=== PATIENT | female | born 1980 | race Caucasian/White ===

== ENCOUNTER 2020-05-21 16:08 | Outpatient (RCR) | payer BC, SELFPAY ==
[2020-05-21] MEDS: RHO(D) IMMUNE GLOBULIN 300 MCG SYRINGE IM (16:29)
== END 2020-08-19 23:59 | disposition home or self-care (01) ==
LOC: ANHLAB 16:08
PROVIDERS: PCP Internal Medicine; Visit Provider Obstetrics & Gynecology
DX: Z29.13 Encounter for prophylactic Rho(D) immune globulin (principal); O36.0990 Maternal care for other rhesus isoimmunization, unspecified trimester, not applicable or unspecified; Z3A.00 Weeks of gestation of pregnancy not specified
CPT/HCPCS: 36415; 85461; 90384; 96372; J2790

== ENCOUNTER 2020-08-08 16:08 | Inpatient (IN) | payer BC, SELFPAY ==
[2020-08-08] VITALS (12 sets, daily range): BP systolic 97–135; BP diastolic 61–94; PULSE 90–111; RESP 15; TEMP 36.6–37.1; BMI 26.6
--- NOTE | 2020-08-08 16:08 | LDADM ---
This patient, Caroline Chris, was admitted to Labor/Delivery/Recovery 108 on 08/08/20 at 16:08. Plans for labor, pain management and were discussed with patient. Patient/family oriented to hospital policies and general routines including ID bracelet, bed and alarms, visiting hours, pain management, procedures, bathroom and other care routines, personal items, smoking policy, room service/diet and guest tray routines, infant security routines, and visiting hours. Patient/Family are encouraged to report perceived risks to care and to ask questions if they do not understand what they are told or what they should do. See OBIX for further documentation.
[2020-08-08 16:41] LABS: Basophils Absolute Auto 0.1 K/mm3 (0.0-0.1); Basophils Percent Auto 0.5 % (0.2-1.2); Eosinophils Absolute Auto 0.1 K/mm3 (0-0.3); Eosinophils Percent Auto 1.2 % (0-4.4); Hematocrit 37.2 % (37.0-47.0); Hemoglobin 12.8 g/dL (12.0-15.0); Immature Granulocyte Absolute 0.06 K/mm3 (0.00-0.031); Immature Granulocyte Percent A 0.5 % (0-0.5); Lymphocytes Absolute Auto 1.92 K/mm3 (0.9-3.2); Lymphocytes Percent Auto 17.4 % (18.3-44.2); Mean Corpuscular HGB Conc 34.4 g/dl (32-36); Mean Corpuscular Hemoglobin 31.7 pg (26-34); Mean Corpuscular Volume 92.1 fl (80-100); Mean Platelet Volume 12.5 fl (7.4-10.4); Neutrophils Absolute Auto 7.9 K/mm3 (1.3-6.7); Neutrophils Percent Auto 71.4 % (45.5-73.1); Platelet Count Result 182 k/mm3 (150-375); Red Blood Count 4.04 M/mm3 (4.2-5.4); Red Cell Distribution Width 14.5 % (11.5-14.5); White Blood Count 11.1 K/mm3 (4.5-10.0)
[2020-08-08] MEDS: DINOPROSTONE 10 MG VAG INSERT VAGINAL (16:52)
[2020-08-08 17:05] LABS: Alanine Aminotransferase 32 U/L (4-35); Albumin Level 3.4 g/dL (3.5-5.1); Alkaline Phosphatase 157 U/L (38-126); Anion Gap 7 mmol/L (8-16); Aspartate Amino Transferase 40 U/L (14-36); Bilirubin,Total 0.7 mg/dL (0.2-1.3); Blood Urea Nitrogen 8 mg/dL (7-17); Carbon Dioxide 22 mmol/L (22-30); Chloride 108 mmol/L (98-107); Estimated CRCL calculation 100 ml/min; Estimated Glomerular Filt Rate > 60; Glucose 109 mg/dL (65-105); Potassium 3.9 mmol/L (3.4-5.0); Sodium 137 mmol/L (137-145)
[2020-08-08] MEDS: valACYclovir HCL 500 MG TABLET PO (19:02)
[2020-08-09] VITALS (192 sets, daily range): BP systolic 106–188; BP diastolic 69–139; PULSE 64–114; RESP 14–18; TEMP 36.6–37.9; O2SAT 83–100
[2020-08-09] MEDS: LACTATED RINGERS 1,000 ML 125 ML IV CONT ×3 (05:46→12:44)
[2020-08-09] MEDS: OXYTOCIN 30 UNITS/NS 500 ML 30 UNITS/500 ML BAG 6 UNITS IV CONT (05:47)
[2020-08-09] MEDS: fentaNYL CITRATE INJ (*CRX) 100 MCG/2 ML VIAL IV PUSH (06:48)
[2020-08-09 06:52] LABS: Rapid Plasma Reagin Non-Reactive (NonReactive)
--- NOTE | 2020-08-09 07:40 | WPDOBADMIT ---
Obstetrics - Admit Note Admission Note: record reviewed. Additions to the history and/or subsequent changes in the physical findings follow. 39 y/o at 39 3/7 weeks here for induction. BP have been a little elevated in the office, but no symptoms and no proteinuria. Cervidil last night, has been withdrawn. SROM at 0630 today. Getting more comfortable with epidural. BP in 150/90 range. Otherwise, AVSS NST reactive TOCO: contractions every 2-4 min ABD soft, nontender, gravid, vertex EXT nontender Cervix 4/50/-2. AROM forebag, clear fluid. Vertex. A: IUP a term with gestational hypertension. P: Oxytocin. Anticipate . Labetalol IV x 1 dose for HTN.
[2020-08-09] MEDS: LABETALOL HCL INJ 100 MG/20 ML VIAL 20 MG IV PUSH ×2 (07:41→13:52)
--- NOTE | 2020-08-09 07:42 | WPDANESEPPF ---
Anes - Initial Pre Proc Eval Procedure: labor epidural Date/Time: 08/09/20 07:42 Surgeon: Rachid Tovar MD Pre Op Diagnosis: labor pain Pre Op Diagnosis: Induction of Labor Patient Data Age: 39 Gender: F Height: 1.68 m Weight: 75 kg Last Vital Signs Temp 36.7 C 08/09/20 03:56 Pulse 78 08/09/20 07:38 Resp 14 08/09/20 03:56 BP 146/99 H 08/09/20 07:38 Pulse Ox 98 08/09/20 07:40 Allergies Allergy/AdvReac Type Severity Reaction Status Date / Time nitrofurantoin Allergy Unknown Chest Pain Verified 08/08/20 16:29 Penicillins Allergy Unknown Rash Verified 08/08/20 16:29 Home Medications Medication Instructions Recorded Confirmed Type PNV [id number] oil 1 tablet PO DAILY 07/16/20 08/08/20 History [ with DHA-Folic Acid] cholecalciferol (vitamin D3) 50 mcg PO DAILY 07/16/20 08/08/20 History [Vitamin D3] valacyclovir 500 mg PO DAILY 08/08/20 08/08/20 History Laboratory Tests 08/08/20 08/08/20 08/08/20 16:33 16:33 16:33 WBC 11.1 K/mm3 H K/mm3 (4.5-10.0) RBC 4.04 M/mm3 L M/mm3 (4.2-5.4) Hgb 12.8 g/dL g/dL (12.0-15.0) Hct 37.2 % % (37.0-47.0) MCV 92.1 fl fl (80-100) MCH 31.7 pg pg (26-34) MCHC 34.4 g/dl g/dl (32-36) RDW 14.5 % % (11.5-14.5) Plt Count 182 k/mm3 k/mm3 (150-375) MPV 12.5 fl H fl (7.4-10.4) Immature Gran % (Auto) 0.5 % % (0-0.5) Neut % (Auto) 71.4 % % (45.5-73.1) Lymph % (Auto) 17.4 % L % (18.3-44.2) [place] % (Auto) 9.0 % H % (2.6-8.5) Eos % (Auto) 1.2 % % (0-4.4) Baso % (Auto) 0.5 % % (0.2-1.2) Lymph # (Auto) 1.92 K/mm3 K/mm3 (0.9-3.2) [place] # (Auto) 1.0 K/mm3 H K/mm3 (0.1-0.6) Eos # (Auto) 0.1 K/mm3 K/mm3 (0-0.3) Baso # (Auto) 0.1 K/mm3 K/mm3 (0.0-0.1) Abs Immat Gran (auto) 0.06 K/mm3 H K/mm3 (0.00-0.031) Absolute Neuts (auto) 7.9 K/mm3 H K/mm3 (1.3-6.7) Absolute Nucleated RBC 0.0 K/mm3 K/mm3 (0.0-0.012) Nucleated RBC % 0.0 % % (0.0-0.2) Sodium 137 mmol/L mmol/L (137-145) Potassium 3.9 mmol/L mmol/L (3.4-5.0) Chloride 108 mmol/L H mmol/L (98-107) Carbon Dioxide 22 mmol/L mmol/L (22-30) Anion Gap 7 mmol/L L mmol/L (8-16) BUN 8 mg/dL mg/dL (7-17) Creatinine 0.60 mg/dL L mg/dL (0.7-1.0) Estim Creat Clear Calc 100 ml/min ml/min Estimated GFR > 60 (59 - ) Glucose 109 mg/dL H mg/dL (65-105) Uric Acid 4.0 mg/dL mg/dL (2.5-7.5) Calcium 9.0 mg/dL mg/dL (8.4-10.2) Total Bilirubin 0.7 mg/dL mg/dL (0.2-1.3) AST 40 U/L H U/L (14-36) ALT 32 U/L U/L (4-35) Alkaline Phosphatase 157 U/L H U/L (38-126) Total Protein 7.0 g/dL g/dL (6.3-8.2) Albumin 3.4 g/dL L g/dL (3.5-5.1) RPR Non-reactive (NonReactive) Blood Type Antibody Screen 08/08/20 08/08/20 16:33 16:33 WBC RBC Hgb Hct MCV MCH MCHC RDW Plt Count MPV Immature Gran % (Auto) Neut % (Auto) Lymph % (Auto) [place] % (Auto) Eos % (Auto) Baso % (Auto) Lymph # (Auto) [place] # (Auto) Eos # (Auto) Baso # (Auto) Abs Immat Gran (auto) Absolute Neuts (auto) Absolute Nucleated RBC Nucleated RBC % Sodium Cancelled Potassium Cancelled Chloride Cancelled Carbon Dioxide Cancelled Anion Gap Cancelled BUN Cancelled Creatinine Cancelled Estim Creat Clear Calc Cancelled Estimated GFR Cancelled Glucose
--- NOTE | 2020-08-09 12:30 | PM.OBPNLAB ---
Pain Control Date/time seen: 08/09/20 17:41 Comments: Pain much better with epidural. Pelvic Exam Dilation (cm): 5 Effacement (%): 90 station: -1 Comments: IUPC placed Contractions Contraction pattern: Regular Status Comments: NST reactive TOCO: contractions every 2-4 min Assessment and Plan Comments: Continue labor
[2020-08-09] MEDS: ceFAZolin 2 GM/D5W 50 ML 2 GM/50 ML BAG IVPB (12:48)
[2020-08-09] MEDS: SODIUM CHLORIDE 0.9% IV 300 ML 600 ML I-UTERINE (13:00)
[2020-08-09] MEDS: OXYTOCIN 30 UNITS/NS 500 ML 30 UNITS/500 ML BAG 125 UNITS IV CONT (15:42)
[2020-08-09] MEDS: IBUPROFEN 600 MG TABLET PO (16:10)
[2020-08-09] MEDS: BENZOCAINE 20% AER SPR (*SP) 56 GM CAN 1 SPRAY TOPICAL (16:12)
[2020-08-09] MEDS: WITCH HAZEL 40 PADS 1 PAD TOPICAL (16:12)
--- NOTE | 2020-08-09 17:44 | PM.OBPRVD ---
OB - Delivery Note Procedure Delivery date: 08/09/20 Procedure: Induction of labor with Induction method: per pitocin protocol and per cervidil protocol Delivery monitor: external FHT, external uterine and internal uterine Route of delivery: Laceration Description: Perineal - 2nd Degree Delivery repair: vicryl (3-0) Specimen: Yes (cord blood, placenta) Quantitative Blood Loss (ml): 330 Anesthesia type: Epidural Disposition: PACU Complications: None Narrative: 39 y/o at 39 3/7 weeks gestation who presented to the hospital for induction of labor. Cervidil was placed overnight. It was withdrawn the following morning and oxytocin was administered intravenously. SROM occurred with clear fluid. She received an epidural. BP readings were elevated and she received one dose of labetalol IV. BP responded and she did not require any further doses. A forebag was noted on exam and amniotomy was performed of the forebag with return of clear fluid. Her labor progressed and her cervix dilated completely. She pushed with good effort and delivered the 's head to the perineum. A loose nuchal cord was reduced and the body delivered. The nose and mouth were bulb suctioned. After a delay, the cord was clamped and cut. The was handed off the field. Cord blood was collected. The placenta delivered spontaneously and was grossly normal in appearance. The usual 3 vessel cord was noted. A second degree midline perineal laceration was sustained. This was reapproximated using 3 0 Vicryl in the usual layered fashion. Excellent hemostasis resulted as did excellent reapproximation of the normal anatomy. Needle and instrument counts were correct. The patient was taken to recovery room in stable condition. The went to the nursery in stable condition. I was present and scrubbed for the entire delivery. Baby Date of : 08/09/20 Time of : 15:21 Weeks of gestation at delivery: 39 gender: Male Weight (pounds): 6 Weight (ounces): 12 presentation: vertex position: Right Occiput Anterior Placenta delivery description: Spontaneous and Normal Configuration cord vessel description: 3 Vessels, Nuchal Cord and Delayed Cord Clamping score one minute: 8 score five minutes: 9
--- NOTE | 2020-08-09 17:49 | PM.OBDSVD ---
DS: Admitting Diagnosis Admitting Diagnosis Admitting Diagnosis: IUP at 39 3/7 weeks Gestational HTN DS: Discharge Diagnosis Discharge Diagnosis (1) (normal spontaneous vaginal delivery): Code(s): O80 - Encounter for full-term uncomplicated delivery Status: Acute (2) Gestational hypertension: Code(s): O13.9 - Gestational [-induced] hypertension without significant proteinuria, unspecified trimester Status: Acute OB - DS: Summary OB Procedures : None OB Procedures Intrapartum: Spontaneous Vag Delivery OB Procedures: : RHo (D) lg Time Spent with Patient Time attestation: Total time spent providing and/or coordinating discharge services: DS: Data Data Completed and Pending Pending studies at discharge: Pending at discharge 08/09/20 15:25 Surgical [PTH] Routine Labs on day of discharge: Labs from last 24 hours 08/08/20 16:33 RPR Non-reactive Discharge Plan Discharge Attending physician on discharge: Rachid Tovar Discharging Clinician: Rachid Tovar Patient Disposition: Home, Self-Care Activity: pelvic rest Diet: as tolerated Discharge Instructions: Education: Mom and Baby Guide Given to: Mother Follow-Up: Call your delivering provider's office for an appointment to be seen in: 4 Weeks [facility]. Appointment Date/Time: August 13, 2020 at 9:00 am What to expect at your follow-up visit: Blood Pressure Check Physical Assessment Call [phone] if you are unable to keep your appointment time. BREAST CARE: * Wear a snug supportive bra. * For engorgement discomfort: Breast Feeding: * Apply warm moist washcloths * Express milk as needed to relieve engorgement * Wear loose clothing * For sore nipples: * Identify correct latch-on * Apply warm moist washcloths before and after nursing * Air dry nipples after nursing * May apply Lansinoh cream to nipples EPISIOTOMY/PERINEAL CARE: * Until bleeding stops, use your maicol bottle after urinating * Change your pad frequently throughout the day * You may take sitz baths several times a day (fill your bathtub with warm water and soak for 20 minutes.) Do NOT bathe in the water * No tub baths until seen by your physician - You may shower ACTIVITY: * Rest as much as possible. * Do not exercise or lift anything heavier than your baby (such as laundry or other children.) * Avoid stairs or driving as much as possible. * Do not put anything into the vagina. No douching, tampons, or sexual activity until seen by physician. NOTIFY PHYSICIAN IF YOU HAVE ANY QUESTIONS OR IF ANY OF THE FOLLOWING SYMPTOMS OCCUR: * If your episiotomy or incision becomes red, swollen, or more painful than what you have experienced in the hospital. * If your vaginal bleeding becomes foul smelling. * If your vaginal bleeding becomes more heavy than a period or if your bleeding changes from pink to bright red. However, you may pass an occasional walnut-sized clot once or twice for the first week . * If you experience a sharp, shooting pain in you calves. * If you discover a hard, reddened area on your breast or if you experience flu-like symptoms. *Temperature of 100.4. or higher DIET: * Eat regular, well-balanced meals. * Drink plenty of fluids daily. If , drink to thirst.Call or return if temperature above 100.4? F, increased abdominal pain, increased vaginal bleeding or any new problems. Stand Alone Forms: General Discharge Information Follow-up/Referrals: Rachid Tovar MD [Physician] - 6 Weeks Discharge Medications: New ibuprofen 600 mg tablet 600 mg PO Q6H PRN (Reason: cramps) Qty: 30 RF: 0 acetaminophen [Mapap (acetaminophen)] 325 mg Tablet 650 mg PO Q6H PRN (Reason: Mild Pain (1-3)
--- NOTE | 2020-08-09 18:41 | OBPPTRN ---
Addendum entered by Dari Kelley RN 08/09/20 18:41: Admission - 08/09/20 @ 1827. Original Note: Patient transferred to post room #282 via wheelchair. Support person present. Oriented to unit, room, information board, rooming in, admission packet and security measures. Patient verbalizes understanding.
[2020-08-10] VITALS: BP 110/77; PULSE 84; RESP 18; TEMP 36.7; O2SAT 98
[2020-08-10] MEDS: IBUPROFEN 600 MG TABLET PO ×3 (00:47→16:55)
[2020-08-10] MEDS: LANOLIN (LANSINOH) 7.5 GM CREAM 1 APPLIC TOPICAL (00:47)
[2020-08-10 04:00] VITALS: BP 117/80; PULSE 70; RESP 18; TEMP 36.5; O2SAT 98
[2020-08-10 05:04] LABS: Hematocrit 28.7 % (37.0-47.0); Hemoglobin 9.5 g/dL (12.0-15.0)
--- NOTE | 2020-08-10 07:00 | PC.NURSE ---
PT introductions made and plan of care discussed per post , pain management, breast feeding, daily care activities. PT verbalized understanding of such care.
--- NOTE | 2020-08-10 07:32 | PM.OBPNVD ---
OB - PN: Subj Subjective Date/time seen: 08/10/20 07:32 Patient comments: no complaints, pain well controlled and tolerating diet [place] feeding status: exclusively breast feeding Narrative: patient doing well this AM. No complaints. Pain is well controlled. She reports minimal bleeding. She is ambulating and voiding without difficulty. She is tolerating PO. She denies N/V, fever, chills. OB - PN: Obj Data Labs CBC & Chem 7: 08/10/20 04:28 08/08/20 16:33 Labs: Laboratory Results - last 24 hr 08/10/20 08/10/20 04:28 04:28 Hgb 9.5 L D Hct 28.7 L Blood Type B Negative Antibody Screen Negative OB - PN A/P Plan day: 1 Plan: routine care Comments: patient doing well H/H 9.11/09, asymptomatic. will start iron supplementation plan for infant circumcision today, risks, benefits and alternatives discussed. verbal consent obtained continue routine care Time Spent With Patient Time: Total time spent is greater than 50% in coordination of care (as documented) at patient's floor/unit and/or counseling patient: Time with patient: less than 15 minutes Review of Systems Review of Systems: All systems reviewed & are unremarkable except as noted in HPI and below Exam Const: General: comfortable and no acute distress Resp: Effort & Inspection: normal respiratory effort Cardio: Rate: regular rate GI: GI Palp: Yes Soft to palpation and No Tenderness to palpation present (GI) Auscultation: normal bowel sounds Other: fundus firm and below umbilicus. Psych: Affect: normal affect
[2020-08-10 08:15] VITALS: BP 134/93; PULSE 87; RESP 16; TEMP 36.9; O2SAT 99
[2020-08-10 09:45] VITALS: PULSE 87; RESP 16; O2SAT 99
[2020-08-10] MEDS: DOCUSATE SODIUM 100 MG CAPSULE PO ×2 (09:45→16:55)
[2020-08-10] MEDS: POLYSACCHARIDE IRON COMPLEX 150 MG CAPSULE PO ×2 (09:45→16:55)
[2020-08-10] MEDS: MULTIVIT/MIN/PREN/FOL AC/IRON TABLET 1 TAB PO (09:45)
--- NOTE | 2020-08-10 10:30 | PC.NURSE ---
Consulted with patient, reviewed feeding cues, frequencies, duration of feedings, feeding elimination flow sheet, and signs of adequate intake. Demonstrated stimulation techniques to wake for feeding. Assisted with to breast. Reviewed positioning/alignment, holding breast and asymmetrical latch on. was able to latch correctly. Infant nursed eagerly, with steady draws and frequent swallowing noted. Reviewed signs of a correct latch, effective nursing and suck swallow ratio. was able to maintain latch without discomfort to mother. Nipple care reviewed. Instructed mother to call out for RN assistance if she is unable to latch for feeding or she has discomfort with nursing. Instructed feeding should be initiated three hours from start of last feeding or if feeding cues are noted before. Mother voiced understanding of information shared.
--- NOTE | 2020-08-10 10:48 | WPDANLDPN2 ---
Anes-Prog Note L&D Date/Time: 08/10/20 10:48 Comfortable throughout: labor and delivery Neuraxial method: epidural Epidural/Spinal procedure site: clean & non-tender Neuro status: Neuro function grossly intact. Cardiovascular status: normal Respiratory status: normal Airway patency: baseline Mental status: baseline Post-Op hydration status: normal Vital Signs: Last Vital Signs Temp 98.4 F 08/10/20 08:15 Pulse 87 08/10/20 08:15 Resp 16 08/10/20 08:15 BP 134/93 H 08/10/20 08:15 Pulse Ox 99 08/10/20 08:15 Pain score (VAS): no pain verbalized I/O: Intake & Output 08/09/20 08/10/20 08/10/20 23:59 07:59 15:59 Intake Total 500 Output Total 85 Balance 415 Post-procedural complaints: none Patient feedback: Patient satisfied with anesthetic care.
[2020-08-10 12:00] VITALS: BP 130/88; PULSE 95; PULSE 99; RESP 14; RESP 18; TEMP 36.5; O2SAT 98; O2SAT 99
[2020-08-10] MEDS: RHO(D) IMMUNE GLOBULIN 300 MCG SYRINGE IM (14:59)
[2020-08-10 19:23] VITALS: BP 139/86; PULSE 81; RESP 18; TEMP 36.6; O2SAT 96
[2020-08-11 08:00] VITALS: BP 115/75; PULSE 78; RESP 16; TEMP 36.8; O2SAT 94
--- NOTE | 2020-08-11 08:02 | PM.OBDSVD ---
DS: Admitting Diagnosis Admitting Diagnosis Admitting Diagnosis: IUP at term OB - DS: Summary OB Procedures : None OB Procedures Intrapartum: Spontaneous Vag Delivery OB Procedures: : None Status at Discharge Functional status at discharge: independent ambulation Overall status at discharge: patient is back to baseline Time Spent with Patient Time attestation: Total time spent providing and/or coordinating discharge services: Time spent: Less than 30 minutes Exam Const: General: comfortable and no acute distress Resp: Effort & Inspection: normal respiratory effort Auscultation: clear to auscultation bilaterally Cardio: Rate: regular rate GI: GI Palp: Yes Soft to palpation Auscultation: normal bowel sounds Other: Fundus firm below umbilicus Psych: Appearance: grossly normal Mental Status: mental status grossly normal Affect: normal affect DS: Data Data Completed and Pending Pending studies at discharge: Pending at discharge 08/09/20 15:25 Surgical [PTH] Routine Labs on day of discharge: Labs from last 24 hours 08/10/20 04:28 Blood Type B Negative Antibody Screen Negative Screen Negative Baby's Blood Type O pos Baby's EFREN Positive Doses of RhIg Required 1 Discharge Plan Discharge Attending physician on discharge: Rachid Tovar Discharging Clinician: Rachid Tovar Patient Disposition: Home, Self-Care Activity: pelvic rest Diet: as tolerated Discharge Instructions: Call or return if temperature above 100.4? F, increased abdominal pain, increased vaginal bleeding or any new problems. Stand Alone Forms: General Discharge Information Follow-up/Referrals: Rachid Tovar MD [Physician] - 6 Weeks Discharge Medications: New ibuprofen 600 mg tablet 600 mg PO Q6H PRN (Reason: cramps) Qty: 30 RF: 0 polysaccharide iron complex 150 mg iron Capsule 150 mg PO BIDWM Qty: 60 RF: 0 acetaminophen [Mapap (acetaminophen)] 325 mg Tablet 650 mg PO Q6H PRN (Reason: Mild Pain (1-3) Or Headache) Qty: 30 RF: 0 Sld-D-Cjikil Cream 1 applic topical PRN PRN (Reason: Sore Nipples) Qty: 28 RF: 0 Continued cholecalciferol (vitamin D3) [Vitamin D3] 50 mcg (2,000 unit) Capsule 50 mcg PO DAILY RF: 0 with DHA-Folic Acid 400-32.5 mcg-mg Tablet,Chewable 1 tablet PO DAILY RF: 0 valacyclovir 1 gram tablet 500 mg PO DAILY RF: 0 Date of admission: 08/08/20 16:08 Primary Care Provider: Ameya Knott Admitting Provider: Rachid Tovar Attending physician on admission: Rachid Tovar Condition: Stable
[2020-08-11] MEDS: POLYSACCHARIDE IRON COMPLEX 150 MG CAPSULE PO (08:17)
[2020-08-11] MEDS: DOCUSATE SODIUM 100 MG CAPSULE PO (08:18)
[2020-08-11] MEDS: IBUPROFEN 600 MG TABLET PO (08:18)
[2020-08-11] MEDS: MULTIVIT/MIN/PREN/FOL AC/IRON TABLET 1 TAB PO (08:18)
[2020-08-11] MEDS: WITCH HAZEL 40 PADS 1 PAD TOPICAL (08:19)
--- NOTE | 2020-08-11 17:10 | PC.NURSE ---
1300 Patient viewed the discharge video Mother & Baby Care, The First Two Weeks . Patient was given the opportunity and encouraged to ask questions. Patient verbalized understanding of information shared and has been given the mother/baby guide for home reference.
[2020-08-13 09:21] VITALS: BP 126/88; PULSE 112; RESP 20; TEMP 36.7; O2SAT 100
== END 2020-08-11 16:16 | disposition home or self-care (01) | DRG 807 ==
LOC: ANHLDR 08-09 17:50 → ANHOB2 08-11 13:49 → ANHLDR 08-13 14:13 → ANHOB2 08-13 14:13
PROVIDERS: Admitting Provider Obstetrics & Gynecology; PCP Internal Medicine; Visit Provider Student in an Organized Health Care Education/Training Program
DX: O13.4 Gestational [pregnancy-induced] hypertension without significant proteinuria, complicating childbirth (principal); Z37.0 Single live birth; O70.1 Second degree perineal laceration during delivery; O69.81X0 Labor and delivery complicated by cord around neck, without compression, not applicable or unspecified; Z3A.39 39 weeks gestation of pregnancy
CPT/HCPCS: 36415; 80053; 84550; 85014; 85018; 85025; 85461; 86592; 86850; 86900; 86901; 88307; 90384; A9270; J0131; J0690; J2590; J2790; J2795; J3010; J7030; J7120

== ENCOUNTER 2021-11-21 17:05 | Outpatient (CLI) | payer BC, SELFPAY ==
--- NOTE | ~2021-11-21 | MM_ITS ---
EXAMINATION: MM screening misha BI w paula HISTORY: Screening mammogram TECHNIQUE: Craniocaudal and mediolateral oblique 3-D tomosynthesis images were obtained and synthetic 2-D images were generated. CAD analysis was submitted and interpreted. COMPARISON: None, baseline BREAST PARENCHYMAL COMPOSITION: The breasts are extremely dense, which lowers the sensitivity of mamm ography. FINDINGS: There is no suspicious mass, calcification, or architectural distortion to suggest malignan cy in either breast. There has been no suspicious interval change. IMPRESSION: 1. No mammographic evidence of malignancy. 2. Recommend routine screening mammography in one year. BI-RADS Category 1: Negative Reviewed, dictated and finalized at location A.
== END 2021-11-21 17:06 | disposition home or self-care (01) ==
PROVIDERS: PCP Internal Medicine; Visit Provider Nurse Practitioner
DX: Z12.31 Encounter for screening mammogram for malignant neoplasm of breast (principal)
CPT/HCPCS: 77063; 77067

== ENCOUNTER → 2022-03-10 15:45 | Outpatient (CLI) | payer BC, SELFPAY ==
--- NOTE | ~2022-03-10 | US_ITS ---
EXAMINATION: US thyroid DATE: 03/10/2022 15:58 INDICATION: Goiter TECHNIQUE: Multiple ultrasound images of the thyroid were obtained. COMPARISON: None. FINDINGS: The right thyroid lobe measures 5.1 x 1.4 x 1.5 cm. The left thyroid lobe measures 1.9 x 0.8 x 1.5 c m. Thyroid isthmus measures 4 mm in thickness. No discrete nodules identified. There is normal echote xture, echogenicity and vascular flow throughout the thyroid gland. IMPRESSION: 1. Normal thyroid ultrasound. Reviewed, dictated and finalized at location A.
== END ==
PROVIDERS: PCP Internal Medicine; Visit Provider Internal Medicine
DX: Z86.39 Personal history of other endocrine, nutritional and metabolic disease (principal)
CPT/HCPCS: 76536

== ENCOUNTER 2022-08-13 18:45 | Emergency (ER) | payer BC, SELFPAY ==
[2022-08-13 18:54] VITALS: BP 138/93; PULSE 115; RESP 16; TEMP 37.1; O2SAT 100
--- NOTE | 2022-08-13 18:57 | ED.URI ---
HPI - URI/Sore Throat General Chief Complaint: Upper Respiratory Infection Stated Complaint: HEADACHE/JAW PAIN/SINUS PAIN/COUGH Time Seen by Provider: 08/13/22 18:57 Source: patient and RN notes reviewed Mode of arrival: ambulatory Limitations: no limitations History of Present Illness HPI Narrative: 41-year-old female presents with concern for 1/2 week history of headache, jaw pain, sinus pain, copious sinus drainage, cough. Reports cough is productive. She reports her 2-year-old was diagnosed with strep last week. She reports she has been taking Sudafed intermittently. MD elicited complaint: cough, nasal congestion and sinus pain Related Data Allergies Allergy/AdvReac Type Severity Reaction Status Date / Time nitrofurantoin Allergy Unknown Chest Pain Verified 08/13/22 18:47 Penicillins Allergy Unknown Rash Verified 08/13/22 18:47 Review of Systems Review of Systems: CONSTITUTIONAL: Reports malaise, chills, sweats EYES: Denies visual changes, redness, or discharge. ENT: Reports rhinorrhea, congestion, sinus pain, and sore throat. CARDIOVASCULAR: Denies chest pain, palpitations, or edema. RESPIRATORY: Reports cough. Denies dyspnea. GASTROINTESTINAL: Denies abdominal pain, nausea, vomiting, diarrhea SKIN: Denies rash or itching. MUSCULOSKELETAL: Denies myalgia. NEUROLOGIC: Denies headache. All systems reviewed & are unremarkable except as noted in HPI and below PMFSH Past Medical History Medical History Benign neoplasm of parotid gland Recurrent UTI Vitamin D deficiency Family History Family History Grandparent Diabetes mellitus Family history of malignant neoplasm of breast in first degree relative Family history of dementia Mother Patient's mother is in good health Father Stented coronary artery Hypertension Social History Social History Smoking status: Former smoker Tobacco type: cigarettes Smoking end date: 12/17/19 Alcohol intake: current Substance use: never Spiritual care concerns: No Comments At time of signature, agree with nursing past medical, surgical, social and family history. There is no relevant family history pertinent to the presenting complaint Exam Narrative: GENERAL: Well-appearing, well-nourished, and in no acute distress. HEAD: Normocephalic EYES: PERRLA, conjunctivae clear ENT: Nares clear, turbinates edematous and erythematous, sinus tenderness. Mucous membranes moist. TM pearly dunne with dull light reflex bilaterally; no tragal tenderness. Oropharynx not erythematous without lesions. Tonsils not enlarged and without exudate, no drooling, no hoarseness, no trismus, uvula midline. NECK: Supple. No lymphadenopathy CHEST: Clear to auscultation, breath sounds equal. No wheezing, rhonchi, rales, or stridor. No respiratory distress, speaks in full sentences. HEART: Regular rate and rhythm. No murmur heard. SKIN: Warm, dry, no rash. NEURO: Alert and oriented x3. PSYCH: Normal mood and affect Course Course Emergency Course: Patient is aware of diagnosis, understands and agrees to treatment plan. Anticipatory guidance given. Patient agrees to follow-up as directed and is aware of reasons to seek care at the emergency department. Portions of this record may have been created with voice recognition software Level of Care: Express Care Visit Vital Signs Vital signs: Vital Signs Temperature 98.7 F 08/13/22 18:54 Pulse Rate 115 H 08/13/22 18:54 Respiratory Rate 16 08/13/22 18:54 Blood Pressure 138/93 H 08/13/22 18:54 Pulse Oximetry 100 08/13/22 18:54 Temperature 98.7 F 08/13/22 18:54 Pulse Rate 115 H 08/13/22 18:54 Respiratory Rate 16 08/13/22 18:54 Blood Pressure 138/93 H 08/13/22 18:54 Pulse Oximetry 100 08/13/22 18:54 Reviewed. AMY - URI/Felicity
== END 2022-08-13 19:06 | disposition home or self-care (01) ==
PROVIDERS: Emergency Provider Nurse Practitioner; PCP Internal Medicine
DX: J01.90 Acute sinusitis, unspecified (principal); B96.89 Other specified bacterial agents as the cause of diseases classified elsewhere; Z87.891 Personal history of nicotine dependence
CPT/HCPCS: 99213; G0463

== ENCOUNTER 2023-02-23 17:11 | Outpatient (RCR) | payer BC, SELFPAY ==
[2023-02-24] MEDS: RHO(D) IMMUNE GLOBULIN 300 MCG/2 ML SYRINGE IM (17:47)
== END 2023-05-24 23:59 | disposition home or self-care (01) ==
LOC: ANHLAB 17:11
PROVIDERS: PCP Internal Medicine; Visit Provider Obstetrics & Gynecology
DX: Z29.13 Encounter for prophylactic Rho(D) immune globulin (principal); O36.0190 Maternal care for anti-D [Rh] antibodies, unspecified trimester, not applicable or unspecified; Z3A.00 Weeks of gestation of pregnancy not specified
CPT/HCPCS: 36415; 85461; 86850; 86900; 86901; 90384; 96372; J2790

== ENCOUNTER 2023-04-28 12:34 | Inpatient (IN) | payer BC, SELFPAY ==
[2023-04-28] VITALS (91 sets, daily range): BP systolic 96–214; BP diastolic 42–180; PULSE 75–136; RESP 16; TEMP 36.3–37.7; O2SAT 92–100; BMI 27.7
--- NOTE | 2023-04-28 12:34 | LDADM ---
This patient, Caroline Chris, was admitted to Labor/Delivery/Recovery 108 on 04/28/23 at 12:34. Plans for labor, pain management and were discussed with patient. Patient/family oriented to hospital policies and general routines including ID bracelet, bed and alarms, visiting hours, pain management, procedures, bathroom and other care routines, personal items, smoking policy, room service/diet and guest tray routines, infant security routines, and visiting hours. Patient/Family are encouraged to report perceived risks to care and to ask questions if they do not understand what they are told or what they should do. See OBIX for further documentation.
[2023-04-28 13:23] LABS: Basophils Percent Auto 0.5 % (0.2-1.2); Eosinophils Absolute Auto 0.1 K/mm3 (0-0.3); Eosinophils Percent Auto 1.4 % (0-4.4); Hematocrit 40.7 % (37.0-47.0); Hemoglobin 13.6 g/dL (12.0-15.0); Immature Granulocyte Absolute 0.03 K/mm3 (0.00-0.031); Immature Granulocyte Percent A 0.3 % (0-0.5); Lymphocytes Absolute Auto 1.66 K/mm3 (0.9-3.2); Mean Corpuscular HGB Conc 33.4 g/dl (32-36); Mean Corpuscular Hemoglobin 31.6 pg (26-34); Mean Corpuscular Volume 94.4 fl (80-100); Mean Platelet Volume 11.9 fl (7.4-10.4); Monocytes Absolute Auto 0.8 K/mm3 (0.1-0.6); Monocytes Percent Auto 8.7 % (2.6-8.5); Neutrophils Absolute Auto 6.1 K/mm3 (1.3-6.7); Neutrophils Percent Auto 70.1 % (45.5-73.1); Platelet Count Result 201 k/mm3 (150-375); Red Blood Count 4.31 M/mm3 (4.2-5.4); Red Cell Distribution Width 12.8 % (11.5-14.5); White Blood Count 8.7 K/mm3 (4.5-10.0)
[2023-04-28] MEDS: LACTATED RINGERS 1,000 ML 125 ML IV CONT (13:26)
[2023-04-28] MEDS: ceFAZolin 2 GM/D5W 50 ML 2 GM/50 ML BAG IVPB (13:27)
--- NOTE | 2023-04-28 15:12 | WPDANESEPP ---
Anes - Eval Pre Procedure Procedure: Labor epidural Date/Time: 04/28/23 15:12 Surgeon: La Preop Diagnosis: Pain during labor Pre Op Diagnosis: Labor Patient Data Age: 42 Gender: F Height: 1.68 m Weight: 78 kg Last Vital Signs Pulse 75 04/28/23 15:01 BP 165/91 H 04/28/23 15:01 Allergies Allergy/AdvReac Type Severity Reaction Status Date / Time nitrofurantoin Allergy Unknown Chest Pain Verified 04/18/23 12:05 Penicillins Allergy Unknown Rash Verified 04/18/23 12:05 Home Medications Medication Instructions Recorded Confirmed Type vits no.126-ferrous fum 1 tablet PO DAILY 04/18/23 04/18/23 History 28 mg iron-folic acid 800 mcg tablet (Classic ) valacyclovir 500 mg tablet 500 mg PO DAILY 04/18/23 04/18/23 History Laboratory Tests 04/28/23 13:11 WBC 8.7 K/mm3 (4.5-10.0) RBC 4.31 M/mm3 (4.2-5.4) Hgb 13.6 D g/dL (12.0-15.0) Hct 40.7 % (37.0-47.0) MCV 94.4 fl (80-100) MCH 31.6 pg (26-34) MCHC 33.4 g/dl (32-36) RDW 12.8 % (11.5-14.5) Plt Count 201 k/mm3 (150-375) MPV 11.9 H fl (7.4-10.4) Immature Gran % (Auto) 0.3 % (0-0.5) Neut % (Auto) 70.1 % (45.5-73.1) Lymph % (Auto) 19.0 % (18.3-44.2) [place] % (Auto) 8.7 H % (2.6-8.5) Eos % (Auto) 1.4 % (0-4.4) Baso % (Auto) 0.5 % (0.2-1.2) Lymph # (Auto) 1.66 K/mm3 (0.9-3.2) [place] # (Auto) 0.8 H K/mm3 (0.1-0.6) Eos # (Auto) 0.1 K/mm3 (0-0.3) Baso # (Auto) 0.0 K/mm3 (0.0-0.1) Abs Immat Gran (auto) 0.03 K/mm3 (0.00-0.031) Absolute Neuts (auto) 6.1 K/mm3 (1.3-6.7) Absolute Nucleated RBC 0.0 K/mm3 (0.0-0.012) Nucleated RBC % 0.0 % (0.0-0.2) RPR Pending Blood Type B Negative Antibody Screen Positive Antibody Identification Pending Antigen Identification Pending EFREN, IgG Interpret Pending EFREN, Poly Interpret Negative EFREN, Complement Interp Pending Patient hx anesthesia problems: none Family hx anesthesia problems: none Results Review: All pre-operative results and documents have been reviewed as part of the pre-operative evaluation. [facility] Past Medical History Medical History Benign neoplasm of parotid gland Recurrent UTI Vitamin D deficiency Family History Family History Grandparent Diabetes mellitus Family history of malignant neoplasm of breast in first degree relative Family history of dementia Mother Patient's mother is in good health Father Stented coronary artery Hypertension Social History Social History Smoking status: Former smoker Tobacco type: cigarettes Smoking end date: 12/17/19 Alcohol intake: current Substance use: never Spiritual care concerns: No Exam Day of Procedure 04/28/23 15:12 Neurological: alert and oriented
[2023-04-28 16:33] LABS: Rapid Plasma Reagin Non-Reactive (NonReactive)
[2023-04-28] MEDS: OXYTOCIN 30 UNITS/NS 500 ML 30 UNITS/500 ML BAG IV CONT (16:36)
--- NOTE | 2023-04-28 17:16 | WPDOBADMIT ---
Obstetrics - Admit Note Admission Note: record reviewed. Additions to the history and/or subsequent changes in the physical findings follow. 42 y/o at 37 6/7 week here after a gush of fluid this morning. Starting to feel some contractions. GBS pos. On Valtrex, no recent HSV outbreak. AVSS NST reactive TOCO: contractions every 2-4 min ABD soft, nontender, gravid, vertex EXT nontender Cervix 6-7/100/0. BLE neg. Vertex. A: IUP at term with SROM. GBS pos. P: Ancef. Augmenting labor with oxytocin. Comfortable now with epidural. Anticipate .
--- NOTE | 2023-04-28 18:44 | PM.OBPRVD ---
OB - Vaginal Delivery Note Procedure Delivery date: 04/29/23 Events: Positive Group B Strep (GBS) Induction method: None Delivery augmentation: Pitocin Delivery monitor: External FHT and External Uterine Route of delivery: Laceration Description: Perineal - 2nd Degree Delivery repair: vicryl (3-0) Specimen: Yes (cord blood) Quantitative Blood Loss (ml): 140 Anesthesia type: Epidural Disposition: PACU Complications: None Narrative: 42 y/o at 37 6/7 weeks gestation who presented to the hospital after a gush of fluid. SROM was diagnosed. She received Ancef for GBS colonization. Labor was augmented with oxytocin. She received an epidural for pain control. Her labor progressed and her cervix dilated completely. She pushed with good effort and delivered the infant's head to the perineum, followed by the body. The nose and mouth were bulb suctioned. After a delay, the cord was clamped and cut. The was handed off the field. Cord blood was collected. The placenta delivered spontaneously and was grossly normal in appearance. The usual 3 vessel cord was noted. A second degree midline perineal laceration was sustained. This was reapproximated using 3 0 Vicryl in the usual layered fashion. Excellent hemostasis resulted as did excellent reapproximation of the normal anatomy. Needle and instrument counts were correct. The patient was taken to recovery room in stable condition. The went to the nursery in stable condition. I was present and scrubbed for the entire delivery. [place] [facility] Date of : 04/28/23 Time of : 18:23 Weeks of gestation at delivery: 37 Infant gender: Female Weight (pounds): 6 Weight (ounces): 11 presentation: vertex position: Left Occiput Anterior Placenta delivery description: Spontaneous and Normal Configuration Cord Vessel Description: 3 Vessels and Delayed Cord Clamping score one minute: 8 score five minutes: 9
--- NOTE | 2023-04-28 18:46 | PM.OBDSVD ---
DS: Admitting Diagnosis Discharge Date 04/30/23 Admitting Diagnosis IUP at 37 6/7 weeks SROM GBS pos DS: Discharge Diagnosis Discharge Diagnosis (1) (normal spontaneous vaginal delivery): Code(s): O80 - Encounter for full-term uncomplicated delivery Status: Acute (2) GBS (group B Streptococcus carrier), +RV culture, currently : Code(s): O99.820 - Streptococcus B carrier state complicating Status: Acute OB - DS: Summary OB Procedures : None OB Procedures Intrapartum: Spontaneous Vag Delivery and GBS prophylaxis OB Procedures: : None Peripartum Data Laceration Description: Perineal - 2nd Degree Time Spent with Patient Time attestation: Total time spent providing and/or coordinating discharge services: DS: Data Data Completed and Pending Labs on day of discharge: Labs from last 24 hours 04/28/23 13:11 WBC 8.7 RBC 4.31 Hgb 13.6 D Hct 40.7 MCV 94.4 MCH 31.6 MCHC 33.4 RDW 12.8 Plt Count 201 MPV 11.9 H Immature Gran % (Auto) 0.3 Neut % (Auto) 70.1 Lymph % (Auto) 19.0 [place] % (Auto) 8.7 H Eos % (Auto) 1.4 Baso % (Auto) 0.5 Lymph # (Auto) 1.66 [place] # (Auto) 0.8 H Eos # (Auto) 0.1 Baso # (Auto) 0.0 Abs Immat Gran (auto) 0.03 Absolute Neuts (auto) 6.1 Absolute Nucleated RBC 0.0 Nucleated RBC % 0.0 RPR Non-reactive Blood Type B Negative Antibody Screen Positive Antibody Identification Passive Due to RH Imm Glob Antigen Identification TNP EFREN, IgG Interpret Not Performed EFREN, Poly Interpret Negative EFREN, Complement Interp Not Performed Discharge Plan Discharge Attending physician on discharge: Rachid Tovar Discharging Clinician: Rachid Tovar Patient Disposition: Home, Self-Care Activity: pelvic rest Diet: regular Discharge Instructions: Education: Mom and Baby Guide Given to: Mother Follow-Up: Call your delivering provider's office for an appointment to be seen in: 6 Weeks Mom and baby should come to the [facility] for the follow-up appointment. Appointment Date/Time: May 01, 2023 at 10:00 am What to expect at your follow-up visit: Blood Pressure Check Physical Assessment Call [phone] if you are unable to keep your appointment time. BREAST CARE: * Wear a snug supportive bra. * For engorgement discomfort: Breast Feeding: * Apply warm moist washcloths * Express milk as needed to relieve engorgement * Wear loose clothing * For sore nipples: * Identify correct latch-on * Apply warm moist washcloths before and after nursing * Air dry nipples after nursing * May apply Lansinoh cream to nipples PERINEAL CARE: * Until bleeding stops, use your maicol bottle after urinating * Change your pad frequently throughout the day * You may take sitz baths several times a day (fill your bathtub with warm water and soak for 20 minutes.) Do NOT bathe in the water * No tub baths until seen by your physician - You may shower ACTIVITY: * Rest as much as possible. * Do not exercise or lift anything heavier than your baby (such as laundry or other children.) * Avoid stairs or driving as much as possible. * Do not put anything into the vagina. No douching, tampons, or sexual activity until seen by physician. NOTIFY PHYSICIAN IF YOU HAVE ANY QUESTIONS OR IF ANY OF THE FOLLOWING SYMPTOMS OCCUR: * If your vaginal bleeding becomes foul smelling. * If your vaginal bleeding becomes more heavy than a period or if your bleeding changes from pink to bright red. However, you may pass an occasional walnut-sized clot once or twice for the first week . * If you experience a sharp, shooting pain in your calves. * If you discover a hard, reddened area on your breast or if you experience flu-like symptoms. DIET: * Eat regular, well-balanced meals. * Drink plenty of fluids daily. If ,
[2023-04-28] MEDS: OXYTOCIN 30 UNITS/NS 500 ML 30 UNITS/500 ML BAG 125 UNITS IV CONT (19:00)
--- NOTE | 2023-04-28 21:20 | PC.NURSE ---
Patient transferred to post room # 282 via (W/C). Support person present. Oriented to unit, room, information board, rooming in, admission packet and security measures. Patient verbalizes understanding.
[2023-04-28] MEDS: IBUPROFEN 600 MG TABLET PO (22:20)
[2023-04-29] MEDS: IBUPROFEN 600 MG TABLET PO ×2 (05:00→17:10)
[2023-04-29 05:04] VITALS: BP 127/89; PULSE 71; RESP 16; TEMP 36.4; O2SAT 97
[2023-04-29 05:46] LABS: Hematocrit 37.1 % (37.0-47.0); Hemoglobin 12.6 g/dL (12.0-15.0)
[2023-04-29 07:53] VITALS: BP 124/88; PULSE 80; RESP 18; TEMP 36.6; O2SAT 98
[2023-04-29] MEDS: MULTIVIT/MIN/PREN/FOL AC/IRON TABLET 1 TAB PO (09:04)
[2023-04-29] MEDS: DOCUSATE SODIUM 100 MG CAPSULE PO ×2 (09:04→17:10)
--- NOTE | 2023-04-29 10:21 | WPDANLDPN2 ---
Anes-Prog Note L&D Date/Time: 04/29/23 10:21 Comfortable throughout: labor and delivery Neuraxial method: epidural Epidural/Spinal procedure site: clean & non-tender Neuro status: Neuro function grossly intact. Cardiovascular status: normal Respiratory status: normal Airway patency: baseline Mental status: baseline Post-Op hydration status: normal Vital Signs: Last Vital Signs Temp 36.6 C 04/29/23 07:53 Pulse 80 04/29/23 07:53 Resp 18 04/29/23 07:53 BP 124/88 04/29/23 07:53 Pulse Ox 98 04/29/23 07:53 O2 Del Method Room Air 04/29/23 07:30 Pain score (VAS): 06/24 I/O: Intake & Output 04/28/23 04/29/23 04/29/23 23:59 07:59 15:59 Intake Total 500 Output Total 775 Balance -275 Post-procedural complaints: none Patient feedback: Patient satisfied with anesthetic care.
[2023-04-29] MEDS: RHO(D) IMMUNE GLOBULIN 300 MCG/2 ML SYRINGE IM (10:54)
--- NOTE | 2023-04-29 11:14 | PC.NURSE ---
On 04/29/23, the student, Elba Tracy, provided care and completed [facility] documentation on this patient. I have reviewed the student's documentation and agree with the findings.
[2023-04-29 12:19] VITALS: BP 127/86; PULSE 82; RESP 16; TEMP 37.4; O2SAT 96
--- NOTE | 2023-04-29 13:04 | PC.NURSE ---
[id number] Introductions were made, then consulted with patient to assess needs related to . Mother led the conversation with her?plans to feed?her infant and the?experience so far. Mother works well with her with encouragement and education. Encouraged understanding of the benefits of skin to skin (demonstrating unwrapping and placing upright on her chest), stimulating with massage touch, changing positions to encourage wakefulness, how to watch for early feeding cues, responsive feeding, feeding on demand (aiming for 8-12 times in 24 hours, about every 2-3 hours), milk production, hand expression, building/maintaining a milk supply, duration of feeding, signs of adequate intake/output and how to record on the feeding sheet. Infant is sleepy and reluctant at this time. Encouraged protecting the milk supply with hand expression. was finger fed colostrum two hours after the start of the last feeding, then placed [id number] when the infant did not demonstrate feeding cues with stimulation. RN's name written on the communication board as a resource to call for assistance. [phone] Mother called for RN to assist as infant has not breastfed. Mother demonstrated the skill of hand expression. did not lap the colostrum from the spoon, so the syringe method was used to feed the 2mls collected. Reviewed good handwashing when or touching the breast/nipples to prevent infection. Resources used to facilitate learning were used with the tool, mom and baby guide. Mother voiced understanding of skin to skin, stimulating with massage touch, responsive feedings, hand expressed colostrum, talking to infant to encourage if it has been 2 -2.5 hours since the start of the last , to call if does not latch, or if there is discomfort with . Resources provided for inpatient/outpatient with feeding sheet and the mom/baby guide. Parents voiced understanding of information, demonstrated learning and will call if there is a request for assistance. Reported to the Primary RN.
--- NOTE | 2023-04-29 15:53 | PM.OBPNVD ---
OB - PN: Subj Subjective Date/time seen: 04/29/23 15:53 Narrative: Pain OK. OB - PN: Obj Data Labs 04/29/23 05:25 Labs: Laboratory Results - last 24 hr 04/28/23 04/29/23 13:11 05:25 Hgb 12.6 Hct 37.1 RPR Non-reactive Blood Type B Negative Antibody Screen Positive Antibody Identification Cancelled Antigen Identification Cancelled EFREN, IgG Interpret Cancelled EFREN, Poly Interpret Cancelled EFREN, Complement Interp Cancelled Screen Negative Baby's Blood Type A pos Baby's EFREN Positive Doses of RhIg Required 1 OB - PN A/P Plan Comments: A: PPD#1, doing well. P: Routine care. Exam Psych: Other: AVSS ABD soft, nontender, fundus firm EXT nontender
[2023-04-29 16:30] VITALS: BP 134/88; PULSE 75; RESP 16; TEMP 36.5; O2SAT 98
[2023-04-29 20:18] VITALS: BP 125/85; PULSE 80; RESP 16; TEMP 36.4; O2SAT 97
[2023-04-30] MEDS: IBUPROFEN 600 MG TABLET PO (07:59)
[2023-04-30] MEDS: MULTIVIT/MIN/PREN/FOL AC/IRON TABLET 1 TAB PO (07:59)
[2023-04-30] MEDS: DOCUSATE SODIUM 100 MG CAPSULE PO (07:59)
[2023-04-30 08:35] VITALS: BP 130/92; PULSE 68; RESP 16; TEMP 37.1; O2SAT 98
--- NOTE | 2023-04-30 11:32 | PC.NURSE ---
[phone] Purposefully rounded to assess needs. Mother has at the right breast sleeping. Reviewed working with , supporting breast and how to protect the nipples with an optimal deep latch, good positioning, and good hand washing. Encouraged understanding frequencies of feeding 8-12 times in 24 hours (approximately 2-3 hours), duration of feedings, milk production, intake/output feeding sheet and signs of adequate intake encouraging swallowing at the breast with visualizing the difference between non-nutritive versus nutritive. Reviewed positioning and alignment, supporting breast, off-centered (asymmetrical latch) and leading with the chin with big, open, wide gape. 's diaper was assessed for urine, then placed back with mother. Mother independently latched to the right breast using cradle positioning. We discussed the visual assessment of the corner of 's mouth not opened wide and possible not swallowing due to latched onto the large nipple. Infant was adjusted and the latch became optimal. Education given to mother of how to visualize suck/swallow ratios and listen for drinking at the breast which infant demonstrated well. was able to maintain latch without discomfort to mother. Nipple care reviewed with optimal latch, good positioning and using clean hands when feeding her and touching her breast. We reviewed early term infant behaviors and how to encourage frequent feedings every 2-2.5 hours during the daytime with swallowing. Switching breasts in the early days to promote more milk swallows. Resources used to facilitate learning were used from the tool, mom and baby guide. Mother voiced understanding of the education shared, to call for assistance if the infant does not latch or if there is discomfort with . Reported to the Primary RN.
--- NOTE | 2023-04-30 12:53 | PM.OBPNVD ---
OB - PN: Subj Subjective Date/time seen: 04/30/23 12:53 Narrative: Pain OK. Would like to go home. OB - PN: Obj Data Labs 04/29/23 05:25 OB - PN A/P Plan Comments: A: PPD#2, doing well. P: Home to f/u 6 weeks. Exam Psych: Other: AVSS ABD soft, nontender, fundus firm EXT nontender
[2023-05-01 10:48] VITALS: BP 123/88; PULSE 88; RESP 18; TEMP 36.7; O2SAT 97
== END 2023-04-30 16:32 | disposition home or self-care (01) | DRG 807 ==
LOC: ANHLDR 18:48 → ANHOB2 21:24
PROVIDERS: Admitting Provider Obstetrics & Gynecology; PCP Internal Medicine; Visit Provider Obstetrics & Gynecology
DX: O99.824 Streptococcus B carrier state complicating childbirth (principal); Z37.0 Single live birth; O70.1 Second degree perineal laceration during delivery; Z3A.37 37 weeks gestation of pregnancy
CPT/HCPCS: 36415; 84112; 85014; 85018; 85025; 85461; 86592; 86850; 86880; 86900; 86901; 90384; A9270; J0690; J2590; J2790; J2795; J7120

== ENCOUNTER 2024-01-09 23:48 | Emergency (ER) | payer BC, SELFPAY ==
--- NOTE | ~2024-01-09 | CT_ITS ---
EXAMINATION: CT soft tissue neck chest w DATE: 01/10/2024 02:09 INDICATION: Sore throat for several days. Positive strep test. TECHNIQUE: Computed tomography (CT) of the neck was performed with 100 CC Omnipaque 350 intravenous c ontrast. Automated exposure control and iterative reconstruction technique were employed. Exam dose: 677.34 mGy-cm total exam DLP. COMPARISON: None FINDINGS: There is prominent asymmetric soft tissue swelling of the right palatine and lingual tonsil s, with small instrument tonsillar abscesses and extensive soft tissue swelling of the right paraphar yngeal soft tissues. The orbital contents and included intracranial contents and vasculature appear normal. Normal symmetric appearance of the parotid and submandibular glands. Normal size and homogeneous enhancement of the thyroid gland. Mild asymmetric prominence of the right posterior triangle lymph nodes, likely reactive. Otherwise no cervical mass lesion or adenopathy is noted. No cervical carotid atherosclerotic disease and stenosis is noted. The paranasal sinuses and mastoid air cells are normally developed and aerated. Normal heart size. No thoracic aortic aneurysm or dissection. No hilar or mediastinal mass lesion or lymphadenopathy. The lungs are clear of infiltrate or consolidation. Included portions of the adrenal glands appear normal. Posterior exophytic 11 mm left renal cyst. The re are multiple left and right hepatic cysts of variable size, the largest measuring up to 2.2 cm max imal dimension. Mild degenerative changes of the cervical and thoracic spine. No suspicious osteolytic or osteoblasti c lesions are noted.. IMPRESSION: Prominent right palatine and lingual tonsil soft tissue swelling with small tonsillar ab scess formation and prominent right parapharyngeal soft tissue thickening Hepatic and left renal cysts Reviewed, dictated and finalized at [facility]. Reviewed, dictated and finalized at [facility]. IMPRESSION: Prominent right palatine and lingual tonsil soft tissue swelling w ith small tonsillar abscess formation and prominent right parapharyngeal soft t issue thickening Hepatic and left renal cysts
[2024-01-09 23:56] VITALS: BP 142/94; PULSE 97; RESP 15; TEMP 37.2; O2SAT 100
--- NOTE | 2024-01-10 00:20 | ED.URI ---
HPI - URI/Sore Throat General Chief Complaint: Upper Respiratory Infection <Miguel Thornton APRN - Last Filed: 01/10/24 13:49> Stated Complaint: sore throat <Miguel Thornton APRN - Last Filed: 01/10/24 13:49> Time Seen by Provider: 01/10/24 00:10 <Miguel Thornton APRN - Last Filed: 01/10/24 13:49> Source: patient <Miguel Thornton APRN - Last Filed: 01/10/24 13:49> Mode of arrival: ambulatory <Miguel Thornton APRN - Last Filed: 01/10/24 13:49> Limitations: no limitations <Miguel Thornton APRN - Last Filed: 01/10/24 13:49> History of Present Illness HPI Narrative: Caroline is a 43-year-old female patient presenting to the emergency room with complaints of sore throat for the past 5 days. Reports she went to the [facility] 3 days ago and was tested for strep and it was negative at that time. States that her swelling and her throat pain is getting worse and she is having difficulty swallowing. Has felt feverish. Temperature was 37.2? in the ER tonight. She also reports some nasal congestion, body aches, and chills. <Miguel Thornton APRN - Last Filed: 01/10/24 13:49> MD elicited complaint: sore throat <Miguel Thornton APRN - Last Filed: 01/10/24 13:49> Related Data Home Medications: Home Medications Medication Instructions Recorded Confirmed vits no.126-ferrous fum 1 tablet PO DAILY 04/18/23 04/18/23 28 mg iron-folic acid 800 mcg tablet (Classic ) <Miguel Thornton APRN - Last Filed: 01/10/24 13:49> Allergies/Adverse Reactions: Allergies Allergy/AdvReac Type Severity Reaction Status Date / Time nitrofurantoin Allergy Unknown Chest Pain Verified 04/18/23 12:05 Penicillins Allergy Unknown Rash Verified 04/18/23 12:05 <Miguel Thornton APRN - Last Filed: 01/10/24 13:49> Review of Systems Review of Systems: Pertinent positives per HPI. Patient denies any rash, headache, visual changes, dizziness, shortness of breath, chest pain, palpitations, nausea, vomiting, diarrhea, constipation, abdominal pain, or any urinary issues. <Miguel Thornton APRN - Last Filed: 01/10/24 13:49> PMFSH Past Medical History Medical History: Medical History Benign neoplasm of parotid gland Recurrent UTI Vitamin D deficiency <Miguel Thornton APRN - Last Filed: 01/10/24 13:49> Family History Family History: Family History Grandparent Diabetes mellitus Family history of malignant neoplasm of breast in first degree relative Family history of dementia Mother Patient's mother is in good health Father Stented coronary artery Hypertension <Miguel Thornton APRN - Last Filed: 01/10/24 13:49> Social History Social History: Social History Smoking packs per day: 1 Smoking cigarettes per day: 20.0 Years smoked: 25 Smoking pack-years: 25.00 Smoking status: Former smoker Tobacco type: cigarettes Smoking end date: 12/17/19 Alcohol intake: current Substance use: never Lack of Transportation: No Lack of Food: Never True Current Housing: I Have Housing Concerned About Future Housing: No Difficulty Paying Gas/Electric Bills: No Difficulty Paying for Meds: No Currently Unemployed: No Education: Bachelor's Degree Difficulty w/ Childcare or Family Care: No Spiritual care concerns: No <BROWN Melendez Last Filed: 01/10/24 13:49> Comments At the time of my signature, I reviewed and agree with the nursing past medical, surgical, social, and family history. There is no relevant family history pertinent to the patient complaint. <Miguel Thornton APRN - Last Filed: 01/10/24 13:49> Exam Narrative: General: Well-developed, well nourished, in no apparent distress
[2024-01-10 00:37] LABS: Strep Group A RT-PCR DETECTED (Negative)
[2024-01-10 00:56] LABS: Basophils Percent Auto 0.3 % (0.2-1.2); Eosinophils Absolute Auto 0.2 K/mm3 (0-0.3); Eosinophils Percent Auto 1.7 % (0-4.4); Hematocrit 40.2 % (37.0-47.0); Hemoglobin 13.4 g/dL (12.0-15.0); Immature Granulocyte Absolute 0.05 K/mm3 (0.00-0.031); Immature Granulocyte Percent A 0.4 % (0-0.5); Lymphocytes Absolute Auto 1.37 K/mm3 (0.9-3.2); Lymphocytes Percent Auto 11.6 % (18.3-44.2); Mean Corpuscular HGB Conc 33.3 g/dl (32-36); Mean Corpuscular Hemoglobin 31.6 pg (26-34); Mean Corpuscular Volume 94.8 fl (80-100); Mean Platelet Volume 10.3 fl (7.4-10.4); Monocytes Absolute Auto 1.2 K/mm3 (0.1-0.6); Platelet Count Result 275 k/mm3 (150-375); Red Blood Count 4.24 M/mm3 (4.2-5.4); Red Cell Distribution Width 12.9 % (11.5-14.5); White Blood Count 11.8 K/mm3 (4.5-10.0)
[2024-01-10 01:08] LABS: Alanine Aminotransferase 15 U/L (6-35); Albumin Level 4.3 g/dL (3.5-5.1); Alkaline Phosphatase 82 U/L (38-126); Anion Gap 9 mmol/L (4-12); Aspartate Amino Transferase 23 U/L (14-36); Bilirubin,Total 1.1 mg/dL (0.2-1.3); Blood Urea Nitrogen 11 mg/dL (7-17); Calcium 9.1 mg/dL (8.4-10.2); Carbon Dioxide 26 mmol/L (22-30); Chloride 103 mmol/L (98-107); Estimated CRCL calculation 84 ml/min; Estimated Glomerular Filt Rate > 60; Glucose 105 mg/dL (65-110); Potassium 3.6 mmol/L (3.4-5.0); Sodium 138 mmol/L (137-145)
[2024-01-10 01:32] LABS: Influenza A QL RT-PCR Negative (Negative); Influenza B QL RT-PCR Negative (Negative); RSV RNA, RT-PCR Negative (Negative); SARS-CoV-2 RNA PCR Negative (Negative)
[2024-01-10 01:44] LABS: BEDSIDEPREGUCG Negative
[2024-01-10] MEDS: ACETAMINOPHEN 500 MG TABLET 1000 MG PO (01:58)
[2024-01-10] MEDS: CLINDAMYCIN 600 MG/D5W 50 ML 600 MG/50 ML PIGGYBACK 100 MG IVPB (01:59)
[2024-01-10] MEDS: dexAMETHasone 2 MG TABLET 10 MG PO (04:19)
== END 2024-01-10 04:30 | disposition home or self-care (01) ==
PROVIDERS: Nurse Practitioner Family; Emergency Provider Student in an Organized Health Care Education/Training Program; PCP Internal Medicine
DX: J02.0 Streptococcal pharyngitis (principal); J03.00 Acute streptococcal tonsillitis, unspecified; J36 Peritonsillar abscess; R59.0 Localized enlarged lymph nodes; J40 Bronchitis, not specified as acute or chronic; J98.4 Other disorders of lung; K76.89 Other specified diseases of liver; R16.1 Splenomegaly, not elsewhere classified; E55.9 Vitamin D deficiency, unspecified; Z87.891 Personal history of nicotine dependence; Z20.822 Contact with and (suspected) exposure to COVID-19
CPT/HCPCS: 36415; 70491; 71260; 80053; 81025; 85025; 87637; 87651; 96365; 99284; A9270; J8540; Q9967

== ENCOUNTER 2025-05-15 14:23 | Outpatient (CLI) | payer BC, SELFPAY ==
--- NOTE | ~2025-05-15 | MM_ITS ---
EXAMINATION: MM screening misha BI w paula HISTORY: Screening. TECHNIQUE: Craniocaudal and mediolateral oblique 3-D tomosynthesis images were obtained and synthetic 2-D images were generated. CAD analysis was submitted and interpreted. COMPARISON: 2021 BREAST PARENCHYMAL COMPOSITION: Dense: The breasts are heterogeneously dense FINDINGS: No suspicious masses are seen. There are no suspicious calcifications. No unexplained architectural distortion is seen. There are no skin or nipple abnormalities identified. There is no adenopathy seen on the images submitted. IMPRESSION: No mammographic evidence to suggest malignancy is seen. The patient may return to screening mammography as per ACR guidelines. BI-RADS 1 - Negative. Reviewed, dictated and finalized at location [facility]. [place] INVENTORY CONTROL CLERK
--- OUTSIDE RECORDS SUMMARY | 2025-05-15 15:26 | XMS_ITS | Clinical Summary ---
Author Organization [facility] Address [address] [place] [id number] Care Team Providers Care Impregnator Operator Name Role Phone Keny Lawson MD Primary Care Provider Allergies Active Allergy Reactions Criticality Noted Date Comments Penicillins Medications multivitamin tablet tablet take 1 tablet by oral route every day with food 0 0 6 Active Additional Information Patient not taking.Reported on 01/16/2017 norethindrone-e .estradiol-iron (MICROGESTIN 24 FE) 1 mg-20 mcg (24)/75 mg (4) per tablet take 1 tablet by oral route every day 0 0 6 Active Active Problems Problem Noted Date Diagnosed Date 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 Overview (09/19/2016): NONTOX NODUL GOITER NOS Medical History Medical History Date Comments Hx Other Medical parotid gland s urgery Family History Medical History Relation Name Comments Hypertension Father Hypertension; Gastroesophageal Reflux Disease Mother GERD; Diabetes type II Other Family hist ory of Diabetes -Type II; Other Other No family histo ry of Thyroid disorder; Relation Name Status Comments Father Mother Other Social History Tobacco Use Types Packs/Day Years Used Date Smoking Tobacco: Never Alcohol Use Standard Drinks/Week Comments No 0 (1 standard drink = 0.6 oz pur e alcohol) Comments Unknown Sex and Gender Information Value Date Recorded Sex Assigned at Not on file 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 Gender Identity Not on file Sexual Orientation Not on file Last Filed Vital Signs Vital Sign Reading Time Taken Comments Blood Pressure 124/80 01/16/2017 1:21 PM CDT Pulse 92 01/16/2017 1:21 PM CDT Temperature - - Respiratory Rate 16 01/16/2017 1:21 PM CDT Oxygen Saturation - - Inhaled Oxygen Concentration - - Weight 59.9 kg (132 lb) 01/16/2017 1:21 PM CDT Height 170.2 cm (5' 7) 01/16/2017 1:21 PM CDT Body Mass Index 20.67 01/16/2017 1:21 PM CDT Plan of Treatment Not on file Insurance [employer] OTHER Address: [address] [place] [address] [facility] Care Teams Impregnator Operator Relationship Specialty [place] [address] [place] [address] PCP - General 07/02/09
== END 2025-05-15 14:24 | disposition home or self-care (01) ==
PROVIDERS: PCP Internal Medicine; Visit Provider Obstetrics & Gynecology
DX: Z12.31 Encounter for screening mammogram for malignant neoplasm of breast (principal)
CPT/HCPCS: 77063; 77067